=== PATIENT | male | born 1975 | race Two or more races ===

== ENCOUNTER 2017-12-30 10:46 | Inpatient (IN) | payer OTHER ==
[2017-12-30 11:40] VITALS: BMI 19.6
--- NOTE | 2017-12-30 12:14 | HP ---
COWS - Scale Resting Pulse: 0= [place] 80 or Below Sweatin= Chills/Flushing Restless Observation: 0= Sits Still Pupil Size: 0= Normal to Room Light Bone or Joint Aches: 1= Mild Discomfort Runny Nose/ Eye Tearin= Runny Nose/Eyes GI Upset > 30mins: 1= Stomach Cramp Tremor Observation: 1= Tremor [place], Not Seen Yawning Observation: 1= 1-2x During Session Anxiety or Irritability: 1=Feels Anxious/Irritable Goose Flesh Skin: 0=Smooth Skin COWS Score: 8 Admission ROS BHS - HPI Chief Complaint: I want to detox, I need help Allergies/Adverse Reactions: Allergies Allergy/AdvReac Type Severity Reaction Status Date / Time Penicillins Allergy Severe Rash Verified 12/30/17 12:06 pork derived (porcine) AdvReac Intermediate Rash Verified 12/30/17 12:06 seafood AdvReac Intermediate Rash Uncoded 12/30/17 12:06 History of Present Illness: 42 yo gentleman here for detox from heroin. FIrst time here but previous detox about six weeks ago at [facility]. History of trying methadone program a year ago but didn't like it. Denies overdose, denies seizures. Does have significant psychiatric history. Exam Limitations: Clinical Condition - Ebola screening Have you traveled outside of the country in the last 21 days: No (N) Have you had contact with anyone from an Ebola affected area: No Have you been sick,other than usual withdrawal symptoms: No Do you have a fever: No - Review of Systems Constitutional: Loss of Appetite, Malaise, Changes in sleep, Weakness EENT: reports: Tearing Respiratory: reports: No Symptoms reported Cardiac: reports: No Symptoms Reported Patient History - Patient Medical History Hx Asthma: No Hx Cancer: No Hx Cardiac Disorders: No Hx Congestive Heart Failure: No Hx Hypertension: No Hx Hypercholesterolemia: No Hx Pacemaker: No HX Cerebrovascular Accident: No Hx Seizures: No Hx Dementia: No Hx Diabetes: No Hx Gastrointestinal Disorders: No Hx Liver Disease: No Hx Genitourinary Disorders: No Hx Sexually Transmitted Disorders: No Hx Renal Disease (ESRD): No Hx Thyroid Disease: No Hx Human Immunodeficiency Virus (HIV): No Hx Hepatitis C: No Hx Depression: Yes (september [address] [facility] ) Hx Suicide Attempt: Yes (age 24 - hospitalized - slit wrists) Hx Bipolar Disorder: Yes Hx Schizophrenia: Yes (schizoaffective) - Patient Surgical History Past Surgical History: No - PPD History Previous Implant?: Yes Documented Results: Negative w/o proof PPD to be Administered?: Yes - Reproductive History Patient is a Female of Child Bearing Age (11 -55 yrs old): No (male) - Smoking Cessation Smoking history: Current every day smoker Have you smoked in the past 12 months: Yes Aproximately how many cigarettes per day: 4 Initiated information on smoking cessation: Yes 'Breaking Loose' booklet given: 12/30/17 (give on floor) - Substance & Tx. History Hx Alcohol Use: No Hx Substance Use: Yes Substance Use Type: Cocaine, Heroin, Marijuana Hx Substance Use Treatment: Yes (detox, hx methadone program 2017) - Substances Abused Heroin Route: Inhalation Frequency: Daily Amount used: 2-4 bags Age of first use: 37 Date of Last Use: 12/30/17 cocaine Route: Inhalation Frequency: Daily Amount used: $10 Age of first use: 23 Date of Last Use: 12/29/17 marijuana Route: Smoking Frequency: 1-2 times per week Amount used: 2 joints Age of first use: 17 Date of Last Use: 12/29/17 Family Disease History - Family Disease History Family Disease History: Diabetes: Mother (living, ), Other: Father (lviing, healthy), Mother, Brother (one - living) Admission Physical Exam S - Vital Signs Vital Signs: Vital Signs - 24 hr 12/30/17 11:38 Temperature 98.4 F Pulse Rate 61 Respiratory 16 Rate Blood Pressure 108/68 - Physical General Appearance: Yes: Nourished, Appropriately Dressed, Moderate Distress, Thin HEENTM: Yes: Hearing grossly Normal, Normocephalic, Normal Voice, Pharynx Normal Respiratory: Yes: Normal Breath Sounds, No Respiratory Distress Neck: Yes: No masses,lesions,Nodules, Supple Breast: Yes: Breast Exam Deferred Cardiology: Yes: Regular Rhythm, Regular Rate Abdominal: Yes: Flat, Soft Genitourinary: Yes: Hesitency Back: Yes: Normal Inspection Musculoskeletal: Yes: full range of Motion, Gait Steady Extremities: Yes: Normal Inspection, Non-Tender Neurological: Yes: Fully Oriented, Alert, Motor Strength 5/5, Normal Mood/Affect , Normal Response Integumentary: Yes: Normal Color, Warm Lymphatic: Yes: Within Normal Limits - Diagnostic (1) Opioid dependence with withdrawal Current Visit: Yes Status: Chronic (2) Cocaine dependence Current Visit: Yes Status: Acute Qualifiers: Substance use status: uncomplicated Qualified Code(s): F14.20 - Cocaine dependence, uncomplicated (3) Marijuana abuse Current Visit: Yes Status: Chronic (4) Nicotine dependence Current Visit: Yes Status: Chronic Qualifiers: Nicotine product type: cigarettes BHS Breath Alcohol Content Breath Alcohol Content: 0 Urine Drug Screen - Results Drug Screen Negative: No Urine Drug Screen Results: THC-Marijuana, AUGILA-Cocaine, OPI-Opiates
[2017-12-30] MEDS ORDERED: guaiFENesin/D-METHORPHAN HB 10 ML UNIT-DOSE CUPS PO PRN (12:27)
[2017-12-30] MEDS ORDERED: hydrOXYzine PAMOATE 25 MG CAPSULE (FP) PO PRN (12:27)
[2017-12-30] MEDS ORDERED: IBUPROFEN 400 MG TABLET (FP) PO PRN (12:27)
[2017-12-30] MEDS ORDERED: MENTHOL/PHENOL 1 EACH UD MM PRN (12:27)
[2017-12-30] MEDS ORDERED: MAGNESIUM CITRATE 300 ML BOTTLE PO PRN (12:27)
[2017-12-30] MEDS ORDERED: P-EPHED 60MG/TRIPROLIDI 2.5MG TABLET PO PRN (12:27)
[2017-12-30] MEDS ORDERED: LOPERAMIDE HCL 2 MG CAPSULE PO PRN (12:27)
[2017-12-30] MEDS ORDERED: MAG HYDROX/AL HYDROX/SIMETH 30 ML UNIT-DOSE CUP PO PRN (12:27)
[2017-12-30] MEDS ORDERED: ACETAMINOPHEN 325 MG TABLET (FP) PO PRN (12:27)
[2017-12-30] MEDS ORDERED: MAGNESIUM HYDROX 2400MG/30ML ORAL SUSPENSION 30 ML CUP PO PRN (12:27)
[2017-12-30] MEDS ORDERED: METHADONE HCL 10 MG TABLET (FOR DETOX USE ONLY) PO ONE ×2 (13:30→23:00)
--- NOTE | 2017-12-30 14:47 | EKG ---
Test Reason : Blood Pressure : / mmHG Vent. Rate : 056 BPM Atrial Rate : 056 BPM P-R Int : 146 ms QRS Dur : 092 ms QT Int : 412 ms P-R-T Axes : 047 046 047 degrees QTc Int : 397 ms SINUS BRADYCARDIA OTHERWISE NORMAL ECG NO PREVIOUS ECGS AVAILABLE Confirmed by MD Hess Daniel ([id number]) on 12/30/2017 2:47:15 PM Referred By: Confirmed By:Rl Hess MD
[2017-12-30 17:37] LABS: URINE APPEARANCE CLEAR; URINE BILIRUBIN NEGATIVE (<2.0 mg/dL); URINE BLOOD NEGATIVE (NEGATIVE); URINE COLOR YELLOW; URINE GLUCOSE (UA) NEGATIVE (NEGATIVE); URINE KETONE NEGATIVE (NEGATIVE); URINE LEUK ESTERASE NEGATIVE (NEGATIVE); URINE NITRITE NEGATIVE (NEGATIVE); URINE PROTEIN NEGATIVE (NEGATIVE); URINE UROBILINOGEN NEGATIVE mg/dL (0.2-1.0)
[2017-12-30] MEDS ORDERED: MELATONIN 5 MG TABLETS PO PRN (22:00)
[2017-12-30] MEDS: diazePAM 5 MG TABLET PO PRN (22:50)
[2017-12-30] MEDS: THIAMINE HCL 100 MG TABLET (FP) PO SCH (22:51)
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
--- NOTE | 2017-12-31 09:08 | CONSULT ---
Mental Status Exam - Mental Status Exam Alert and Oriented to: Time, Place, Person Cognitive Function: Good Patient Appearance: Well Groomed Mood: Apathetic, Depressed Affect: Appropriate Patient Behavior: Cooperative Speech Pattern: Clear Voice Loudness: Normal, Mildly Soft/Quiet Thought Process: Intact Thought Disorder: Not Present Hallucinations: None Suicidal Ideation: None Homicidal Ideation: None Insight/Judgement: Poor Sleep: Poorly Appetite: Good Muscle strength/Tone: Normal Gait/Station: Normal Psychiatric Findings - Problem List ([place] 1, 2,3) (1) Depressed bipolar I disorder in full remission with anxious distress Current Visit: Yes Status: Acute (2) Cocaine dependence Current Visit: Yes Status: Acute Qualifiers: Substance use status: uncomplicated Qualified Code(s): F14.20 - Cocaine dependence, uncomplicated (3) Marijuana abuse Current Visit: Yes Status: Acute (4) Nicotine dependence Current Visit: Yes Status: Acute Qualifiers: Nicotine product type: cigarettes (5) Opioid dependence with withdrawal Current Visit: Yes Status: Acute - Initial Treatment Plan Initial Treatment Plan: [facility]. Detox protocol. Trazodone 50 mg po q hs
[2017-12-31] MEDS: diazePAM 5 MG TABLET PO PRN ×2 (09:14→17:10)
[2017-12-31] MEDS: PRENATAL VITAMINS W/ FOLIC ACID TABLET (FP) PO SCH (09:14)
[2017-12-31] MEDS ORDERED: METHADONE HCL 10 MG TABLET (FOR DETOX USE ONLY) PO ONE (10:00)
[2017-12-31 10:06] LABS: MEAN CELL VOLUME 92.8 fl (80-96)
[2017-12-31 10:10] LABS: HEMATOCRIT 39.5 % (35.4-49); HEMOGLOBIN 13.2 GM/dL (11.7-16.9); MCHC 33.4 g/dl (32.0-35.9); MEAN PLT VOLUME 8.3 fl (7.5-11.1); PLATELET COUNT 189 K/MM3 (134-434); RBC 4.25 M/mm3 (4.00-5.60); RDW 12.9 % (11.9-15.9); WHITE BLOOD COUNT 3.3 K/mm3 (4.0-10.0)
[2017-12-31 10:19] LABS: CHLORIDE 105 mmol/L (98-107); POTASSIUM 4.2 mmol/L (3.5-5.1); SODIUM 140 mmol/L (136-145)
[2017-12-31 10:44] LABS: ALBUMIN 3.5 g/dl (3.4-5.0); ALK PHOS 63 U/L (45-117); ANION GAP 6 (8-16); BILIRUBIN,TOTAL 0.4 mg/dL (0.2-1.0); BLOOD UREA NITROGEN 12 mg/dL (7-18); CALCIUM 8.6 mg/dL (8.5-10.1); CO2 29 mmol/L (21-32); CREATININE 0.9 mg/dL (0.7-1.3); GLUCOSE,RANDOM 74 mg/dL (74-106); SGOT/AST 23 U/L (15-37); SGPT/ALT 32 U/L (12-78); TOT PROT 6.3 g/dl (6.4-8.2)
[2017-12-31] MEDS: NICOTINE POLACRILEX 4 MG GUM BUC PRN ×3 (11:15→22:28)
--- NOTE | 2017-12-31 14:24 | PN ---
S COWS - Scale Resting Pulse: 0= [place] 80 or Below Sweatin= Chills/Flushing Restless Observation: 3= Extraneous Movement Pupil Size: 0= Normal to Room Light Bone or Joint Aches: 4=Acute Joint/Muscle Pain Runny Nose/ Eye Tearin= Nasal Congestion GI Upset > 30mins: 0= None Tremor Observation of Outstretched Hands: 1= Tremor [place], Not Seen Yawning Observation: 0= None Anxiety or Irritability: 2=Irritable/Anxious Goose Flesh Skin: 0=Smooth Skin COWS Score: 12 S Progress Note (SOAP) Subjective: ANXIETY,SWEATS,BACK ACHE,INTERMITTENT SLEEP. Objective: 12/31/17 14:23 Vital Signs 12/31/17 12/31/17 09:59 13:41 Temperature 96.0 F L 97.6 F Pulse Rate 60 55 L Respiratory 18 18 Rate Blood Pressure 116/80 111/85 Laboratory Tests 12/30/17 12/31/17 12/31/17 Unknown 07:50 07:50 WBC 3.3 L RBC 4.25 Hgb 13.2 Hct 39.5 MCV 92.8 MCH 31.0 MCHC 33.4 RDW 12.9 Plt Count 189 MPV 8.3 Sodium 140 Potassium 4.2 Chloride 105 Carbon Dioxide 29 Anion Gap 6 L BUN 12 Creatinine 0.9 Creat Clearance w eGFR > 60 Random Glucose 74 Calcium 8.6 Total Bilirubin 0.4 AST 23 ALT 32 Alkaline Phosphatase 63 Total Protein 6.3 L Albumin 3.5 Urine Color Yellow Urine Appearance Clear Urine pH 7.0 Ur Specific [place] 1.025 Urine Protein Negative Urine Glucose (UA) Negative Urine Ketones Negative Urine Blood Negative Urine Nitrite Negative Urine Bilirubin Negative Urine Urobilinogen Negative Ur Leukocyte Esterase Negative RPR Titer HIV 1&2 Antibody Screen HIV P24 Antigen 12/31/17 12/31/17 07:50 07:50 WBC RBC Hgb Hct MCV MCH MCHC RDW Plt Count MPV Sodium Potassium Chloride Carbon Dioxide Anion Gap BUN Creatinine Creat Clearance w eGFR Random Glucose Calcium Total Bilirubin AST ALT Alkaline Phosphatase Total Protein Albumin Urine Color Urine Appearance Urine pH Ur Specific [place] Urine Protein Urine Glucose (UA) Urine Ketones Urine Blood Urine Nitrite Urine Bilirubin Urine Urobilinogen Ur Leukocyte Esterase RPR Titer Nonreactive HIV 1&2 Antibody Screen Negative HIV P24 Antigen Negative Assessment: 12/31/17 14:23 WITHDRAWAL SX Plan: CONTINUE DETOX
[2017-12-31] MEDS: CYCLOBENZAPRINE HCL 10 MG TABLET (FP) PO SCH (22:27)
[2017-12-31] MEDS: THIAMINE HCL 100 MG TABLET (FP) PO SCH (22:27)
[2018-01-01] MEDS: diazePAM 5 MG TABLET PO PRN ×3 (01:39→17:38)
[2018-01-01] MEDS: CYCLOBENZAPRINE HCL 10 MG TABLET (FP) PO SCH ×3 (06:45→22:23)
[2018-01-01] MEDS ORDERED: METHADONE HCL 5 MG TABLET (FOR DETOX USE ONLY) PO ONE (10:00)
[2018-01-01] MEDS: PRENATAL VITAMINS W/ FOLIC ACID TABLET (FP) PO SCH (10:23)
--- NOTE | 2018-01-01 11:36 | PN ---
BHS COWS - Scale Resting Pulse: 0= [place] 80 or Below Sweatin=Flushed/Facial Moisture Restless Observation: 3= Extraneous Movement Pupil Size: 0= Normal to Room Light Bone or Joint Aches: 1= Mild Discomfort Runny Nose/ Eye Tearin= Nasal Congestion GI Upset > 30mins: 1= Stomach Cramp Tremor Observation of Outstretched Hands: 2= Slight Tremor Visible Yawning Observation: 0= None Anxiety or Irritability: 2=Irritable/Anxious Goose Flesh Skin: 0=Smooth Skin COWS Score: 12 S Progress Note (SOAP) Subjective: Shakes sweats Back pain - chronic Objective: 01/01/18 11:34 A & O x 3 Ambulatory with a steady gait Anxious No acute distress Vital Signs Temperature 97.9 F 01/01/18 09:36 Pulse Rate 59 L 01/01/18 09:36 Respiratory Rate 18 01/01/18 09:36 Blood Pressure 102/65 01/01/18 09:36 O2 Sat by Pulse Oximetry (%) Laboratory Last Values WBC 3.3 K/mm3 (4.0-10.0) L 12/31/17 07:50 RBC 4.25 M/mm3 (4.00-5.60) 12/31/17 07:50 Hgb 13.2 GM/dL (11.7-16.9) 12/31/17 07:50 Hct 39.5 % (35.4-49) 12/31/17 07:50 MCV 92.8 fl (80-96) 12/31/17 07:50 MCH 31.0 pg (25.7-33.7) 12/31/17 07:50 MCHC 33.4 g/dl (32.0-35.9) 12/31/17 07:50 RDW 12.9 % (11.9-15.9) 12/31/17 07:50 Plt Count 189 K/MM3 (134-434) 12/31/17 07:50 MPV 8.3 fl (7.5-11.1) 12/31/17 07:50 Sodium 140 mmol/L (136-145) 12/31/17 07:50 Potassium 4.2 mmol/L (3.5-5.1) 12/31/17 07:50 Chloride 105 mmol/L (98-107) 12/31/17 07:50 Carbon Dioxide 29 mmol/L (21-32) 12/31/17 07:50 Anion Gap 6 (8-16) L 12/31/17 07:50 BUN 12 mg/dL (7-18) 12/31/17 07:50 Creatinine 0.9 mg/dL (0.7-1.3) 12/31/17 07:50 Creat Clearance w eGFR > 60 (>60) 12/31/17 07:50 Random Glucose 74 mg/dL (74-106) 12/31/17 07:50 Calcium 8.6 mg/dL (8.5-10.1) 12/31/17 07:50 Total Bilirubin 0.4 mg/dL (0.2-1.0) 12/31/17 07:50 AST 23 U/L (15-37) 12/31/17 07:50 ALT 32 U/L (12-78) 12/31/17 07:50 Alkaline Phosphatase 63 U/L (45-117) 12/31/17 07:50 Total Protein 6.3 g/dl (6.4-8.2) L 12/31/17 07:50 Albumin 3.5 g/dl (3.4-5.0) 12/31/17 07:50 Urine Color Yellow 12/30/17 Unknown Urine Appearance Clear 12/30/17 Unknown Urine pH 7.0 (5.0-8.0) 12/30/17 Unknown Ur Specific [place] 1.025 (1.001-1.035) 12/30/17 Unknown Urine Protein Negative (NEGATIVE) 12/30/17 Unknown Urine Glucose (UA) Negative (NEGATIVE) 12/30/17 Unknown Urine Ketones Negative (NEGATIVE) 12/30/17 Unknown Urine Blood Negative (NEGATIVE) 12/30/17 Unknown Urine Nitrite Negative (NEGATIVE) 12/30/17 Unknown Urine Bilirubin Negative (<2.0 mg/dL) 12/30/17 Unknown Urine Urobilinogen Negative mg/dL (0.2-1.0) 12/30/17 Unknown Ur Leukocyte Esterase Negative (NEGATIVE) 12/30/17 Unknown RPR Titer Nonreactive (NONREACTIVE) 12/31/17 07:50 HIV 1&2 Antibody Screen Negative 12/31/17 07:50 HIV P24 Antigen Negative 12/31/17 07:50 Labs noted Assessment: 01/01/18 11:36 Withdrawal sx Plan: Continue detox pain med for chronic back pain
[2018-01-01] MEDS: NICOTINE POLACRILEX 4 MG GUM BUC PRN (15:37)
[2018-01-01] MEDS: THIAMINE HCL 100 MG TABLET (FP) PO SCH (22:23)
[2018-01-02] MEDS: diazePAM 5 MG TABLET PO PRN (03:05)
[2018-01-02] MEDS: CYCLOBENZAPRINE HCL 10 MG TABLET (FP) PO SCH (07:13)
[2018-01-02 09:11] VITALS: BP 107/73; PULSE 77; TEMP 98
[2018-01-02] MEDS ORDERED: METHADONE HCL 5 MG TABLET (FOR DETOX USE ONLY) PO ONE (10:00)
[2018-01-02] MEDS: PRENATAL VITAMINS W/ FOLIC ACID TABLET (FP) PO SCH (10:40)
--- NOTE | 2018-01-02 13:17 | PN ---
BHS Progress Note (SOAP) Subjective: Sweating, Body Aches, Anxious. Objective: PATIENT A & O X 3, OBSERVED AMBULATING ON UNIT. NO ACUTE DISTRESS. 01/02/18 13:16 Vital Signs Temperature 98 F 01/02/18 09:10 Pulse Rate 77 01/02/18 09:10 Respiratory Rate 20 01/02/18 09:10 Blood Pressure 107/73 01/02/18 09:10 O2 Sat by Pulse Oximetry (%) Laboratory Tests 12/30/17 12/31/17 12/31/17 Unknown 07:50 07:50 WBC 3.3 L RBC 4.25 Hgb 13.2 Hct 39.5 MCV 92.8 MCH 31.0 MCHC 33.4 RDW 12.9 Plt Count 189 MPV 8.3 Sodium 140 Potassium 4.2 Chloride 105 Carbon Dioxide 29 Anion Gap 6 L BUN 12 Creatinine 0.9 Creat Clearance w eGFR > 60 Random Glucose 74 Calcium 8.6 Total Bilirubin 0.4 AST 23 ALT 32 Alkaline Phosphatase 63 Total Protein 6.3 L Albumin 3.5 Urine Color Yellow Urine Appearance Clear Urine pH 7.0 Ur Specific [place] 1.025 Urine Protein Negative Urine Glucose (UA) Negative Urine Ketones Negative Urine Blood Negative Urine Nitrite Negative Urine Bilirubin Negative Urine Urobilinogen Negative Ur Leukocyte Esterase Negative RPR Titer HIV 1&2 Antibody Screen HIV P24 Antigen 12/31/17 12/31/17 07:50 07:50 WBC RBC Hgb Hct MCV MCH MCHC RDW Plt Count MPV Sodium Potassium Chloride Carbon Dioxide Anion Gap BUN Creatinine Creat Clearance w eGFR Random Glucose Calcium Total Bilirubin AST ALT Alkaline Phosphatase Total Protein Albumin Urine Color Urine Appearance Urine pH Ur Specific [place] Urine Protein Urine Glucose (UA) Urine Ketones Urine Blood Urine Nitrite Urine Bilirubin Urine Urobilinogen Ur Leukocyte Esterase RPR Titer Nonreactive HIV 1&2 Antibody Screen Negative HIV P24 Antigen Negative LABS NOTED. Assessment: 01/02/18 13:17 WITHDRAWAL SYMPTOMS. Plan: CONTINUE DETOX.
--- NOTE | 2018-01-02 13:23 | DS ---
[facility] Detox Discharge Summary Admission Date: 12/30/17 Discharge Date: 01/02/18 - History Present History: Cannabis Dependence, Cocaine Dependence, Opioid Dependence Additional Comments: PATIENT DOES NOT WISH TO STAY TO COMPLETE DETOX REGIMEN. PATIENT DISPLAYING VERBALLY CONFRONTATIONAL AND AGGRESSIVE BEHAVIOR WITH BOTH MEDICAL STAFF AND WITH OTHER PATIENTS EARLIER ON IN MORNING PRIOR TO TIME IN WHICH PATIENT ELECTED TO LEAVE DETOX UNIT. RISKS OF LEAVING DETOX UNIT AGAINST MEDICAL ADVICE AND PRIOR TO COMPLETION OF DETOX REGIMEN EXPLAINED TO PATIENT. PATIENT ADVISED TO GO IMMEDIATELY TO NEAREST ER SHOULD ANY INTOLERABLE DETOX SYMPTOMS DEVELOP AT ANY TIME. PATIENT LEFT DETOX UNIT IN STABLE MEDICAL CONDITION. Pertinent Past History: Depression, Anxious, Bipolar Disorder, Schizoaffective Disorder, Nicotine Dependence. - Physical Exam Results Vital Signs: Vital Signs Temperature 98 F 01/02/18 09:10 Pulse Rate 77 01/02/18 09:10 Respiratory Rate 20 01/02/18 09:10 Blood Pressure 107/73 01/02/18 09:10 O2 Sat by Pulse Oximetry (%) Pertinent Admission Physical Exam Findings: WITHDRAWAL SYMPTOMS. Laboratory Tests 12/30/17 12/31/17 12/31/17 Unknown 07:50 07:50 WBC 3.3 L RBC 4.25 Hgb 13.2 Hct 39.5 MCV 92.8 MCH 31.0 MCHC 33.4 RDW 12.9 Plt Count 189 MPV 8.3 Sodium 140 Potassium 4.2 Chloride 105 Carbon Dioxide 29 Anion Gap 6 L BUN 12 Creatinine 0.9 Creat Clearance w eGFR > 60 Random Glucose 74 Calcium 8.6 Total Bilirubin 0.4 AST 23 ALT 32 Alkaline Phosphatase 63 Total Protein 6.3 L Albumin 3.5 Urine Color Yellow Urine Appearance Clear Urine pH 7.0 Ur Specific [place] 1.025 Urine Protein Negative Urine Glucose (UA) Negative Urine Ketones Negative Urine Blood Negative Urine Nitrite Negative Urine Bilirubin Negative Urine Urobilinogen Negative Ur Leukocyte Esterase Negative RPR Titer HIV 1&2 Antibody Screen HIV P24 Antigen 12/31/17 12/31/17 07:50 07:50 WBC RBC Hgb Hct MCV MCH MCHC RDW Plt Count MPV Sodium Potassium Chloride Carbon Dioxide Anion Gap BUN Creatinine Creat Clearance w eGFR Random Glucose Calcium Total Bilirubin AST ALT Alkaline Phosphatase Total Protein Albumin Urine Color Urine Appearance Urine pH Ur Specific [place] Urine Protein Urine Glucose (UA) Urine Ketones Urine Blood Urine Nitrite Urine Bilirubin Urine Urobilinogen Ur Leukocyte Esterase RPR Titer Nonreactive HIV 1&2 Antibody Screen Negative HIV P24 Antigen Negative LABS NOTED. - Treatment Hospital Course: Detoxed Safely - Medication Discharge Medications: Ambulatory Orders Gabapentin [Neurontin -] 300 mg PO DAILY PRN 12/30/17 Lamotrigine [Lamictal -] 25 mg PO DAILY 12/30/17 Trazodone HCl 50 mg PO HS 12/30/17 - AMA Did Patient Leave Against Medical Advice: Yes (PATIENT DID NOT WISH TO STAY TO COMPLETE DETOX REGIMEN.)
[2018-01-03] MEDS ORDERED: METHADONE HCL 10 MG TABLET (FOR DETOX USE ONLY) PO ONE (10:00)
[2018-01-04] MEDS ORDERED: METHADONE HCL 5 MG TABLET (FOR DETOX USE ONLY) PO ONE (06:00)
== END 2018-01-02 11:02 | disposition left against medical advice (07) | DRG 770 ==
LOC: YASAS 10:46 → Y3N 13:32
PROVIDERS: ADMIT Surgery; ATTEND Surgery
PROC: HZ2ZZZZ Detoxification Services for Substance Abuse Treatment (ICD-10-PCS; principal; 2017-12-30)
DX: F11.23 Opioid dependence with withdrawal (principal); F14.20 Cocaine dependence, uncomplicated; F12.20 Cannabis dependence, uncomplicated; F17.213 Nicotine dependence, cigarettes, with withdrawal; F31.76 Bipolar disorder, in full remission, most recent episode depressed; Z88.0 Allergy status to penicillin; Z91.013 Allergy to seafood; Z91.5 Personal history of self-harm
CPT/HCPCS: 36415; 80053; 81003; 85027; 86593; 87389; 93005; 93010

== ENCOUNTER 2018-04-12 12:55 | Inpatient (IN) | payer OTHER ==
[2018-04-12 13:23] VITALS: BMI 20.9
--- NOTE | 2018-04-12 15:00 | HP ---
COWS - Scale Resting Pulse: 0= OR 80 or Below Sweatin= Chills/Flushing Restless Observation: 3= Extraneous Movement Pupil Size: 0= Normal to Room Light Bone or Joint Aches: 4=Acute Joint/Muscle Pain Runny Nose/ Eye Tearin= Nasal Congestion GI Upset > 30mins: 1= Stomach Cramp Tremor Observation: 0= None Yawning Observation: 1= 1-2x During Session Anxiety or Irritability: 2=Irritable/Anxious Goose Flesh Skin: 0=Smooth Skin COWS Score: 13 CIWA Score - CIWA Score Nausea/Vomitin (N/V TODAY) Muscle Tremors: 3 Anxiety: 4-Mod. Anxious/Guarded Agitation: 3 Paroxysmal Sweats: No Perspiration Orientation: 0-Oriented Tacttile Disturbances: 0-None Auditory Disturbances: 0-None Visual Disturbances: 0-None Headache: 0-None Present CIWA-Ar Total Score: 13 Admission ROS BHS - HPI Chief Complaint: HEROIN WITHDRAWAL SX-NAUSEA AND VOMITING,BODY ACHES-"I NEED HELP WITH MY DRUG USE". Allergies/Adverse Reactions: Allergies Allergy/AdvReac Type Severity Reaction Status Date / Time Penicillins Allergy Severe Rash Verified 12/30/17 12:06 pork derived (porcine) AdvReac Intermediate Rash Verified 12/30/17 12:06 seafood AdvReac Intermediate Rash Uncoded 12/30/17 12:06 History of Present Illness: 42 Y/O H/ MALE WITH A HX OF HEROIN,ALCOHOL,COCAINE AND MARIJUANA DEPENDENCE SEEKING DETOX [place]. 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 COPY OF [facility] ER DISCHARGE PAPERS IN PATIENT'S CHART. REPORTS HE WAS DISCHARGED TODAY AND REFERRED HERE TO DETOX. PT DENIES ANY PMHx. PT REPORTS MULTIPLE PSYCH HOSPITALIZATIONS-OVER 10 TIMES, LAST WAS IN FEBRUARY 2018 AT [facility]. PT DENIES S/H/I AT THIS TIME. Exam Limitations: No Limitations - Ebola screening Have you traveled outside of the country in the last 21 days: No Have you had contact with anyone from an Ebola affected area: No Have you been sick,other than usual withdrawal symptoms: No Do you have a fever: No - Review of Systems Constitutional: Chills, Loss of Appetite, Night Sweats, Changes in sleep, Unexplained wgt Loss EENT: reports: Blurred Vision (WEARS GLASSES), Tearing, Nose Congestion, Other ( SORE THROAT) Respiratory: reports: Cough, Productive cough (YELLOWISH BROWN SPUTUM) Cardiac: reports: Lightheadedness GI: reports: Constipated, Diarrhea, Nausea, Poor Appetite, Poor Fluid Intake, Vomiting : reports: Dysuria Musculoskeletal: reports: Back Pain, Joint Pain Integumentary: reports: No Symptoms Reported Neuro: reports: Headache, Numbness, Tingling Endocrine: reports: No Symptoms Reported Hematology: reports: Anemia Psychiatric: reports: Orientated x3, Anxious, Depressed Other Systems: Reviewed and Negative Patient History - Patient Medical History Hx Anemia: Yes (NO CURRENT TX) Hx Asthma: No Hx Chronic Obstructive Pulmonary Disease (COPD): No Hx Cancer: No Hx Cardiac Disorders: No Hx Congestive Heart Failure: No Hx Hypertension: No Hx Hypercholesterolemia: No Hx Pacemaker: No HX Cerebrovascular Accident: No Hx Seizures: No Hx Dementia: No Hx Diabetes: No Hx Gastrointestinal Disorders: No Hx Liver Disease: No Hx Genitourinary Disorders: No Hx Sexually Transmitted Disorders: No Hx Renal Disease (ESRD): No Hx Thyroid Disease: No Hx Human Immunodeficiency Virus (HIV): No (NEGATIVE HX) Hx Hepatitis C: No Hx Depression: Yes (FEBRUARY 2018 HOSPITALIZED AT [facility]) Hx Suicide Attempt: Yes (age 24 - hospitalized - slit wrists;DENIES CURRENT S/I/ H TODAY) Hx Bipolar Disorder: Yes Hx Schizophrenia: Yes (schizoaffective) - Patient Surgical History Past Surgical History: No Hx Neurologic Surgery: No Hx Cataract Extraction: No Hx Cardiac Surgery: No Hx Lung Surgery: No Hx Breast Surgery: No Hx Breast Biopsy: No Hx Abdominal Surgery: No Hx Appendectomy: No Hx Cholecystectomy: No Hx Genitourinary Surgery: No Hx Section: No Hx Orthopedic Surgery: No Anesthesia Reaction: No - PPD History Previous Implant?: Yes Documented Results: Negative w/proof Date: 01/01/18 PPD to be Administered?: No - Reproductive History Patient is a Female of Child Bearing Age (11 -55 yrs old): No (MALE) - Smoking Cessation Smoking history: Current every day smoker Have you smoked in the past 12 months: Yes Aproximately how many cigarettes per day: 4 Hx Chewing Tobacco Use: No Initiated information on smoking cessation: Yes 'Breaking Loose' booklet given: 04/12/18 - Substance & Tx. History Hx Alcohol Use: Yes (OCASSIONALLY) Hx Substance Use: Yes (HEROIN/COCAINE/MARIJUANA) Substance Use Type: Alcohol, Cocaine, Heroin, Marijuana Hx Substance Use Treatment: Yes ([facility] AT [facility]) - Substances Abused Alcohol Route: Oral Frequency: 1-2 times per week (PT REPORTS ALCOHOL INTAKE FREQUENCY VARIES BUT CAN DRINK ABOVE QUANTITIES AT ONCE EPISODE.) Amount used: 1/2 PT VODAK & 6PK BEER Age of first use: 22 Date of Last Use: 03/25/18 Heroin Route: Inhalation Frequency: Daily Amount used: 2-4 BAGS Age of first use: 36 Date of Last Use: 04/11/18 Cocaine Route: Inhalation Frequency: 1-2 times per week Amount used: 1 DIME Age of first use: 23 Date of Last Use: 04/11/18 Marijuana/Hashish Route: Smoking Frequency: 1-3 times last 30 days Amount used: $5 BAG Age of first use: 18 Date of Last Use: 04/08/18 Family Disease History - Family Disease History Family Disease History: Diabetes: Mother (living, ), Other: Father (lviing, healthy), Mother, Brother (one - living) Admission Physical Exam S - Vital Signs Vital Signs: Vital Signs - 24 hr 04/12/18 13:17 Temperature 97.8 F Pulse Rate 68 Respiratory 18 Rate Blood Pressure 119/73 - Physical General Appearance: Yes: Moderate Distress, Irritable, Anxious HEENTM: Yes: EOMI, Normocephalic, DWAYNE, Pharynx Normal Respiratory: Yes: Chest Non-Tender, Lungs Clear, Normal Breath Sounds Neck: Yes: No masses,lesions,Nodules, Supple, Trachea in good position Breast: Yes: Breast Exam Deferred Cardiology: Yes: Regular Rhythm, Regular Rate, S1, S2 Abdominal: Yes: Normal Bowel Sounds, Non Tender, Flat, Soft Genitourinary: Yes: Other (N/C) Back: Yes: Within Normal Limits Musculoskeletal: Yes: full range of Motion, Gait Steady Extremities: Yes: Normal Range of Motion, Non-Tender Neurological: Yes: handbook writer II-XII NML intact, Fully Oriented, Alert, Motor Strength 5/5 Integumentary: Yes: Dry, Warm Lymphatic: Yes: Within Normal Limits - Diagnostic (1) Cannabis dependence, uncomplicated Current Visit: Yes Status: Acute (2) Cocaine dependence Current Visit: Yes Status: Acute Qualifiers: Substance use status: uncomplicated Qualified Code(s): F14.20 - Cocaine dependence, uncomplicated (3) Nicotine dependence Current Visit: Yes Status: Acute Qualifiers: Nicotine product type: cigarettes Substance use status: in withdrawal Qualified Code(s): F17.213 - Nicotine dependence, cigarettes, with withdrawal (4) Opioid dependence with withdrawal Current Visit: Yes Status: Acute Cleared for Admission S - Detox or Rehab [facility] Level of Care: Medically Managed (PT REQUEST VALIUM INSTEAD OF LIBRIUM) Detox Regimen/Protocol: Methadone/Valium S Breath Alcohol Content Breath Alcohol Content: 0 Urine Drug Screen - Results Drug Screen Negative: No Urine Drug Screen Results: THC-Marijuana, AGUILA-Cocaine, OPI-Opiates, MTD- Methadone
[2018-04-12] MEDS ORDERED: LOPERAMIDE HCL 2 MG CAPSULE PO PRN (15:51)
[2018-04-12] MEDS ORDERED: MAGNESIUM HYDROX 2400MG/30ML ORAL SUSPENSION 30 ML CUP PO PRN (15:51)
[2018-04-12] MEDS ORDERED: MAGNESIUM CITRATE 300 ML BOTTLE PO PRN (15:51)
[2018-04-12] MEDS ORDERED: ACETAMINOPHEN 325 MG TABLET (FP) PO PRN (15:51)
[2018-04-12] MEDS ORDERED: MAG HYDROX/AL HYDROX/SIMETH 30 ML UNIT-DOSE CUP PO PRN (15:51)
[2018-04-12] MEDS ORDERED: P-EPHED 60MG/TRIPROLIDI 2.5MG TABLET PO PRN (15:51)
[2018-04-12] MEDS ORDERED: MENTHOL/PHENOL 1 EACH UD MM PRN (15:51)
[2018-04-12] MEDS ORDERED: guaiFENesin/D-METHORPHAN HB 10 ML UNIT-DOSE CUPS PO PRN (15:51)
[2018-04-12] MEDS ORDERED: diazePAM 5 MG TABLET PO ONE (18:00)
[2018-04-12] MEDS ORDERED: METHADONE HCL 10 MG TABLET (FOR DETOX USE ONLY) PO ONE ×2 (18:00→23:00)
[2018-04-12] MEDS: NICOTINE 14 MG/24 HOURS TOPICAL PATCH TD SCH (18:24)
[2018-04-12] MEDS ORDERED: MELATONIN 5 MG TABLETS PO PRN (22:00)
[2018-04-12] MEDS: THIAMINE HCL 100 MG TABLET (FP) PO SCH (22:22)
[2018-04-12] MEDS: diazePAM 5 MG TABLET PO SCH (22:22)
[2018-04-13] MEDS: diazePAM 5 MG TABLET PO PRN ×3 (00:44→20:34)
[2018-04-13 03:32] LABS: URINE APPEARANCE CLEAR; URINE BILIRUBIN NEGATIVE (<2.0 mg/dL); URINE COLOR LTYELLOW; URINE GLUCOSE (UA) NEGATIVE (NEGATIVE); URINE KETONE NEGATIVE (NEGATIVE); URINE LEUK ESTERASE NEGATIVE (NEGATIVE); URINE NITRITE NEGATIVE (NEGATIVE); URINE PROTEIN NEGATIVE (NEGATIVE)
[2018-04-13] MEDS: diazePAM 5 MG TABLET PO SCH ×3 (05:41→22:37)
[2018-04-13] MEDS: NICOTINE POLACRILEX 2 MG GUM BC PRN ×4 (07:19→17:18)
--- NOTE | 2018-04-13 08:01 | EKG ---
Test Reason : Blood Pressure : / mmHG Vent. Rate : 052 BPM Atrial Rate : 052 BPM P-R Int : 124 ms QRS Dur : 088 ms QT Int : 414 ms P-R-T Axes : 015 041 040 degrees QTc Int : 385 ms SINUS BRADYCARDIA OTHERWISE NORMAL ECG WHEN COMPARED WITH ECG OF 30-DEC-2017 14:25, NO SIGNIFICANT CHANGE WAS FOUND Confirmed by XOCHITL FONG MD ([id number]) on 04/13/2018 8:01:29 AM Referred By: Confirmed By:XOCHITL FONG MD
[2018-04-13] MEDS ORDERED: METHADONE HCL 10 MG TABLET (FOR DETOX USE ONLY) PO SCH (10:00)
[2018-04-13 10:25] LABS: HEMATOCRIT 38.1 % (35.4-49); HEMOGLOBIN 12.5 GM/dL (11.7-16.9); MCHC 32.7 g/dl (32.0-35.9); MEAN CELL VOLUME 91.5 fl (80-96); MEAN PLT VOLUME 8.3 fl (7.5-11.1); PLATELET COUNT 259 K/MM3 (134-434); RBC 4.16 M/mm3 (4.00-5.60); RDW 13.2 % (11.9-15.9); WHITE BLOOD COUNT 3.6 K/mm3 (4.0-10.0)
[2018-04-13 10:37] LABS: ALBUMIN 3.5 g/dl (3.4-5.0); ALK PHOS 76 U/L (45-117); ANION GAP 8 MMOL/L (8-16); BILIRUBIN,TOTAL 0.4 mg/dL (0.2-1); BLOOD UREA NITROGEN 9 mg/dL (7-18); CALCIUM 9.1 mg/dL (8.5-10.1); CHLORIDE 105 mmol/L (98-107); CO2 29 mmol/L (21-32); CREATININE 0.9 mg/dL (0.55-1.3); GLUCOSE,RANDOM 62 mg/dL (74-106); POTASSIUM 3.9 mmol/L (3.5-5.1); SGOT/AST 22 U/L (15-37); SGPT/ALT 30 U/L (13-61); SODIUM 141 mmol/L (136-145); TOT PROT 6.4 g/dl (6.4-8.2)
[2018-04-13] MEDS: PRENATAL VITAMINS W/ FOLIC ACID TABLET (FP) PO SCH (10:48)
[2018-04-13] MEDS: NICOTINE 14 MG/24 HOURS TOPICAL PATCH TD SCH (10:49)
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
[2018-04-13] MEDS: lamoTRIgine 25 MG TABLET PO SCH (14:47)
--- NOTE | 2018-04-13 14:48 | PN ---
[facility] CIWA - CIWA Score Nausea/Vomitin-No Nausea/No Vomiting Muscle Tremors: None Anxiety: 0-No Anxiety, at Ease Agitation: 1-Slight > Activity Paroxysmal Sweats: No Perspiration Orientation: 0-Oriented Tacttile Disturbances: 0-None Auditory Disturbances: 0-None Visual Disturbances: 0-None Headache: 0-None Present CIWA-Ar Total Score: 1 S COWS - Scale Resting Pulse: 0= HI 80 or Below Sweatin= No chills or Flushing Restless Observation: 1= Difficult to Sit Still Pupil Size: 0= Normal to Room Light Bone or Joint Aches: 0= None Runny Nose/ Eye Tearin= None GI Upset > 30mins: 0= None Tremor Observation of Outstretched Hands: 0= None Yawning Observation: 0= None Anxiety or Irritability: 0= None Goose Flesh Skin: 0=Smooth Skin COWS Score: 1 [facility] Progress Note (SOAP) Subjective: patient with mild irritability Objective: 04/13/18 14:47 Vital Signs Temperature 97.9 F 04/13/18 12:56 Pulse Rate 65 04/13/18 12:56 Respiratory Rate 18 04/13/18 12:56 Blood Pressure 124/67 04/13/18 12:56 O2 Sat by Pulse Oximetry (%) Laboratory Tests 04/12/18 04/13/18 04/13/18 23:31 07:00 07:00 WBC 3.6 L RBC 4.16 Hgb 12.5 Hct 38.1 MCV 91.5 MCH 30.0 MCHC 32.7 RDW 13.2 Plt Count 259 D MPV 8.3 Sodium 141 Potassium 3.9 Chloride 105 Carbon Dioxide 29 Anion Gap 8 BUN 9 Creatinine 0.9 Creat Clearance w eGFR > 60 Random Glucose 62 L Calcium 9.1 Total Bilirubin 0.4 AST 22 ALT 30 Alkaline Phosphatase 76 Total Protein 6.4 Albumin 3.5 Urine Color Ltyellow Urine Appearance Clear Urine pH 8.0 Ur Specific [place] 1.012 Urine Protein Negative Urine Glucose (UA) Negative Urine Ketones Negative Urine Blood Negative Urine Nitrite Negative Urine Bilirubin Negative Urine Urobilinogen 2.0 Ur Leukocyte Esterase Negative RPR Titer 04/13/18 07:00 WBC RBC Hgb Hct MCV MCH MCHC RDW Plt Count MPV Sodium Potassium Chloride Carbon Dioxide Anion Gap BUN Creatinine Creat Clearance w eGFR Random Glucose Calcium Total Bilirubin AST ALT Alkaline Phosphatase Total Protein Albumin Urine Color Urine Appearance Urine pH Ur Specific [place] Urine Protein Urine Glucose (UA) Urine Ketones Urine Blood Urine Nitrite Urine Bilirubin Urine Urobilinogen Ur Leukocyte Esterase RPR Titer Nonreactive pe: alert and oriented x 3 in nad pacing in unit ext no edema neuro +perrla, cn x1-12 grossly intact Assessment: 04/13/18 14:48 withdrawal syndrome Plan: continue detox as per protocol
[2018-04-13] MEDS ORDERED: TRIMETHOBENZAMIDE HCL 300 MG CAPSULE PO PRN (21:06)
[2018-04-13] MEDS: TRIMETHOBENZAMIDE HCL 200MG/2ML INJ IM PRN (22:10)
[2018-04-13] MEDS: THIAMINE HCL 100 MG TABLET (FP) PO SCH (22:37)
[2018-04-13] MEDS: ZOLPIDEM TARTRATE 10 MG TABLET (PARK CARE ONLY) PO PRN (22:40)
[2018-04-14] MEDS: diazePAM 5 MG TABLET PO PRN ×2 (02:16→23:26)
[2018-04-14] MEDS: IBUPROFEN 400 MG TABLET (FP) PO PRN (02:17)
[2018-04-14] MEDS: diazePAM 5 MG TABLET PO SCH ×2 (10:31→22:34)
[2018-04-14] MEDS: GABAPENTIN 300 MG CAPSULE (FP) PO SCH (10:31)
[2018-04-14] MEDS: METHADONE HCL 5 MG TABLET (FOR DETOX USE ONLY) PO SCH (10:31)
[2018-04-14] MEDS: lamoTRIgine 25 MG TABLET PO SCH (10:31)
[2018-04-14] MEDS: PRENATAL VITAMINS W/ FOLIC ACID TABLET (FP) PO SCH (10:31)
[2018-04-14] MEDS: NICOTINE 14 MG/24 HOURS TOPICAL PATCH TD SCH (10:32)
--- NOTE | 2018-04-14 11:00 | PN ---
S CIWA - CIWA Score Nausea/Vomitin Muscle Tremors: 2 Anxiety: 3 Agitation: 3 Paroxysmal Sweats: 2 Orientation: 0-Oriented Tacttile Disturbances: 2-Mild Itch/Numbness/Burn Auditory Disturbances: 1-Very Mild Visual Disturbances: 1-Very Mild Sensitivity Headache: 2-Mild CIWA-Ar Total Score: 19 BHS COWS - Scale Resting Pulse: 0= NE 80 or Below Sweatin= Chills/Flushing Restless Observation: 1= Difficult to Sit Still Pupil Size: 0= Normal to Room Light Bone or Joint Aches: 2= Severe Diffuse Aches Runny Nose/ Eye Tearin= Nasal Congestion GI Upset > 30mins: 3= Vomiting/Diarrhea Tremor Observation of Outstretched Hands: 2= Slight Tremor Visible Yawning Observation: 1= 1-2x During Session Anxiety or Irritability: 2=Irritable/Anxious Goose Flesh Skin: 3=Piloerection COWS Score: 16 B[facility] Progress Note (SOAP) Subjective: Irritability, interrupted sleep, nausea and vomiting Objective: 04/14/18 10:59 Vital Signs - 8 hr 04/14/18 04/14/18 03:30 10:00 Temperature 97.7 F Pulse Rate 61 Respiratory 18 18 Rate Blood Pressure 116/59 L Laboratory Last Values WBC 3.6 K/mm3 (4.0-10.0) L 04/13/18 07:00 RBC 4.16 M/mm3 (4.00-5.60) 04/13/18 07:00 Hgb 12.5 GM/dL (11.7-16.9) 04/13/18 07:00 Hct 38.1 % (35.4-49) 04/13/18 07:00 MCV 91.5 fl (80-96) 04/13/18 07:00 MCH 30.0 pg (25.7-33.7) 04/13/18 07:00 MCHC 32.7 g/dl (32.0-35.9) 04/13/18 07:00 RDW 13.2 % (11.9-15.9) 04/13/18 07:00 Plt Count 259 K/MM3 (134-434) D 04/13/18 07:00 MPV 8.3 fl (7.5-11.1) 04/13/18 07:00 Sodium 141 mmol/L (136-145) 04/13/18 07:00 Potassium 3.9 mmol/L (3.5-5.1) 04/13/18 07:00 Chloride 105 mmol/L (98-107) 04/13/18 07:00 Carbon Dioxide 29 mmol/L (21-32) 04/13/18 07:00 Anion Gap 8 MMOL/L (8-16) 04/13/18 07:00 BUN 9 mg/dL (7-18) 04/13/18 07:00 Creatinine 0.9 mg/dL (0.55-1.3) 04/13/18 07:00 Creat Clearance w eGFR > 60 (>60) 04/13/18 07:00 Random Glucose 62 mg/dL (74-106) L 04/13/18 07:00 Calcium 9.1 mg/dL (8.5-10.1) 04/13/18 07:00 Total Bilirubin 0.4 mg/dL (0.2-1) 04/13/18 07:00 AST 22 U/L (15-37) 04/13/18 07:00 ALT 30 U/L (13-61) 04/13/18 07:00 Alkaline Phosphatase 76 U/L (45-117) 04/13/18 07:00 Total Protein 6.4 g/dl (6.4-8.2) 04/13/18 07:00 Albumin 3.5 g/dl (3.4-5.0) 04/13/18 07:00 Urine Color Ltyellow 04/12/18 23:31 Urine Appearance Clear 04/12/18 23:31 Urine pH 8.0 (5.0-8.0) 04/12/18 23:31 Ur Specific [place] 1.012 (1.001-1.035) 04/12/18 23:31 Urine Protein Negative (NEGATIVE) 04/12/18 23:31 Urine Glucose (UA) Negative (NEGATIVE) 04/12/18 23: Urine Ketones Negative (NEGATIVE) 04/12/18 23:31 Urine Blood Negative (NEGATIVE) 04/12/18 23:31 Urine Nitrite Negative (NEGATIVE) 04/12/18 23: Urine Bilirubin Negative (<2.0 mg/dL) 04/12/18 23: Urine Urobilinogen 2.0 mg/dL (0.2-1.0) 04/12/18 23:31 Ur Leukocyte Esterase Negative (NEGATIVE) 04/12/18 23:31 RPR Titer Nonreactive (NONREACTIVE) 04/13/18 07:00 HIV 1&2 Antibody Screen Negative 04/13/18 07:00 HIV P24 Antigen Negative 04/13/18 07:00 Labs noted Assessment: 04/14/18 10:59 Withdrawal sx Plan: Continue detox
[2018-04-14] MEDS ORDERED: ONDANSETRON 8 MG TABLET (FP) PO PRN (11:17)
[2018-04-14] MEDS: NICOTINE POLACRILEX 2 MG GUM BC PRN (13:13)
[2018-04-14] MEDS: TRIMETHOBENZAMIDE HCL 200MG/2ML INJ IM PRN (17:10)
[2018-04-14] MEDS ORDERED: cloNIDine HCL 0.1 MG TABLET PO ONE (19:38)
[2018-04-14] MEDS: THIAMINE HCL 100 MG TABLET (FP) PO SCH (22:34)
[2018-04-14] MEDS: ZOLPIDEM TARTRATE 10 MG TABLET (PARK CARE ONLY) PO PRN (22:34)
[2018-04-15] MEDS: TRIMETHOBENZAMIDE HCL 200MG/2ML INJ IM PRN (10:41)
[2018-04-15] MEDS: GABAPENTIN 300 MG CAPSULE (FP) PO SCH (11:34)
[2018-04-15] MEDS: METHADONE HCL 5 MG TABLET (FOR DETOX USE ONLY) PO SCH (11:35)
[2018-04-15] MEDS: PRENATAL VITAMINS W/ FOLIC ACID TABLET (FP) PO SCH (11:36)
[2018-04-15] MEDS: lamoTRIgine 25 MG TABLET PO SCH (11:36)
[2018-04-15] MEDS: NICOTINE 14 MG/24 HOURS TOPICAL PATCH TD SCH (11:36)
[2018-04-15] MEDS: diazePAM 5 MG TABLET PO SCH ×2 (11:36→22:24)
[2018-04-15] MEDS: NICOTINE POLACRILEX 2 MG GUM BC PRN (11:37)
[2018-04-15] MEDS: IBUPROFEN 400 MG TABLET (FP) PO PRN (11:39)
[2018-04-15] MEDS ORDERED: ONDANSETRON *ODT* 4 MG TABLET SL PRN (12:38)
--- NOTE | 2018-04-15 14:13 | PN ---
[facility] Progress Note (SOAP) Subjective: Cramps in legs, vomiting, stomach cramps, interrupted sleep Objective: 04/15/18 14:12 Last Vital Signs Temp Pulse Resp BP Pulse Ox 97.4 F L 62 18 135/91 04/15/18 13:34 04/15/18 13:34 04/15/18 13:34 04/15/18 13:34 Laboratory Tests 04/12/18 04/13/18 04/13/18 23:31 07:00 07:00 WBC 3.6 L RBC 4.16 Hgb 12.5 Hct 38.1 MCV 91.5 MCH 30.0 MCHC 32.7 RDW 13.2 Plt Count 259 D MPV 8.3 Sodium 141 Potassium 3.9 Chloride 105 Carbon Dioxide 29 Anion Gap 8 BUN 9 Creatinine 0.9 Creat Clearance w eGFR > 60 Random Glucose 62 L Calcium 9.1 Total Bilirubin 0.4 AST 22 ALT 30 Alkaline Phosphatase 76 Total Protein 6.4 Albumin 3.5 Urine Color Ltyellow Urine Appearance Clear Urine pH 8.0 Ur Specific [place] 1.012 Urine Protein Negative Urine Glucose (UA) Negative Urine Ketones Negative Urine Blood Negative Urine Nitrite Negative Urine Bilirubin Negative Urine Urobilinogen 2.0 Ur Leukocyte Esterase Negative RPR Titer HIV 1&2 Antibody Screen HIV P24 Antigen 04/13/18 04/13/18 07:00 07:00 WBC RBC Hgb Hct MCV MCH MCHC RDW Plt Count MPV Sodium Potassium Chloride Carbon Dioxide Anion Gap BUN Creatinine Creat Clearance w eGFR Random Glucose Calcium Total Bilirubin AST ALT Alkaline Phosphatase Total Protein Albumin Urine Color Urine Appearance Urine pH Ur Specific [place] Urine Protein Urine Glucose (UA) Urine Ketones Urine Blood Urine Nitrite Urine Bilirubin Urine Urobilinogen Ur Leukocyte Esterase RPR Titer Nonreactive HIV 1&2 Antibody Screen Negative HIV P24 Antigen Negative Labs reviewed Assessment: 04/15/18 14:13 Withdrawal symptoms Plan: Continue detox
[2018-04-15] MEDS: THIAMINE HCL 100 MG TABLET (FP) PO SCH (22:24)
[2018-04-15] MEDS: ZOLPIDEM TARTRATE 10 MG TABLET (PARK CARE ONLY) PO PRN (22:25)
[2018-04-16] MEDS ORDERED: hydrOXYzine PAMOATE 50 MG CAPSULE (FP) PO PRN (03:10)
[2018-04-16] MEDS ORDERED: METHADONE HCL 10 MG TABLET (FOR DETOX USE ONLY) PO SCH (10:00)
[2018-04-16] MEDS ORDERED: diazePAM 5 MG TABLET PO SCH (10:00)
[2018-04-16] MEDS: PRENATAL VITAMINS W/ FOLIC ACID TABLET (FP) PO SCH (10:40)
[2018-04-16] MEDS: NICOTINE 14 MG/24 HOURS TOPICAL PATCH TD SCH (10:41)
[2018-04-16] MEDS: GABAPENTIN 300 MG CAPSULE (FP) PO SCH (10:41)
[2018-04-16] MEDS: lamoTRIgine 25 MG TABLET PO SCH (10:41)
[2018-04-16] MEDS: NICOTINE POLACRILEX 2 MG GUM BC PRN (10:41)
--- NOTE | 2018-04-16 15:34 | PN ---
[facility] Progress Note (SOAP) Subjective: Sleep disturbance Shakes Objective: 04/16/18 15:31 A & O x 3 Vital Signs Temperature 98.4 F 04/16/18 14:10 Pulse Rate 59 L 04/16/18 14:10 Respiratory Rate 20 04/16/18 14:10 Blood Pressure 119/79 04/16/18 14:10 O2 Sat by Pulse Oximetry (%) Assessment: 04/16/18 15:33 withdrawal sx Plan: continue detox
[2018-04-16] MEDS: ZOLPIDEM TARTRATE 10 MG TABLET (PARK CARE ONLY) PO PRN (21:49)
[2018-04-16] MEDS: THIAMINE HCL 100 MG TABLET (FP) PO SCH (23:09)
[2018-04-17] MEDS ORDERED: METHADONE HCL 5 MG TABLET (FOR DETOX USE ONLY) PO SCH (06:00)
[2018-04-17 09:47] VITALS: BP 107/67; PULSE 64; TEMP 97.1
[2018-04-17] MEDS: PRENATAL VITAMINS W/ FOLIC ACID TABLET (FP) PO SCH (10:00)
[2018-04-17] MEDS: GABAPENTIN 300 MG CAPSULE (FP) PO SCH (10:00)
[2018-04-17] MEDS: NICOTINE 14 MG/24 HOURS TOPICAL PATCH TD SCH (10:00)
[2018-04-17] MEDS: lamoTRIgine 25 MG TABLET PO SCH (10:00)
[2018-04-17] MEDS: IBUPROFEN 400 MG TABLET (FP) PO PRN (10:01)
--- NOTE | 2018-04-17 10:44 | DS ---
[facility] Detox Discharge Summary Admission Date: 04/12/18 Discharge Date: 04/17/18 - History Present History: Alcohol Dependence, Opioid Dependence - Physical Exam Results Vital Signs: Vital Signs Temperature 97.1 F L 04/17/18 09:46 Pulse Rate 64 04/17/18 09:46 Respiratory Rate 20 04/17/18 09:46 Blood Pressure 107/67 04/17/18 09:46 O2 Sat by Pulse Oximetry (%) Pertinent Admission Physical Exam Findings: Patient is medically stable. In NAD. Denies SI/HI. Patient is alert and oriented x 3. Ambulatory ad brendan. - Treatment Hospital Course: Detox Protocol Followed, Detoxed Safely, Responded well, Discharged Condition Good, Rehab Referral Accepted Patient has Accepted a Rehab Referral to: patient d/c to 28 day rehab at [facility] - Medication Discharge Medications: Ambulatory Orders Gabapentin [Neurontin -] 300 mg PO DAILY PRN 12/30/17 Lamotrigine [Lamictal -] 25 mg PO DAILY 12/30/17 Zolpidem Tartrate [Ambien] 10 mg PO 04/12/18 Gabapentin [Neurontin] 300 mg PO HS #30 capsule 04/16/18 Lamotrigine [Lamictal] 25 mg PO DAILY #30 tab.disper 04/16/18 - Diagnosis (1) Withdrawal syndrome Current Visit: Yes Status: Resolved - AMA Did Patient Leave Against Medical Advice: No
== END 2018-04-17 10:28 | disposition home or self-care (01) | DRG 773 ==
LOC: YASAS 12:55 → Y6N 17:12 → Y3N 04-14 23:05
PROC: HZ2ZZZZ Detoxification Services for Substance Abuse Treatment (ICD-10-PCS; principal; 2018-04-12)
DX: F11.23 Opioid dependence with withdrawal (principal); F10.230 Alcohol dependence with withdrawal, uncomplicated; F14.20 Cocaine dependence, uncomplicated; F12.20 Cannabis dependence, uncomplicated; F17.213 Nicotine dependence, cigarettes, with withdrawal; F31.9 Bipolar disorder, unspecified; F32.9 Major depressive disorder, single episode, unspecified; F25.0 Schizoaffective disorder, bipolar type; Z91.5 Personal history of self-harm; Z88.0 Allergy status to penicillin; Z86.2 Personal history of diseases of the blood and blood-forming organs and certain disorders involving the immune mechanism
CPT/HCPCS: 36415; 80053; 81003; 85027; 86593; 87389; 93005; 93010; J0735; Q0162

== ENCOUNTER 2019-01-21 10:06 | Inpatient (IN) | payer OTHER ==
[2019-01-21 11:23] VITALS: BMI 19.1
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
[2019-01-21] MEDS ORDERED: cloNIDine HCL 0.1 MG TABLET PO PRN (13:55)
[2019-01-21] MEDS ORDERED: chlordiazePOXIDE HCL 25 MG CAPSULE PO PRN (13:56)
[2019-01-21] MEDS ORDERED: ACETAMINOPHEN 325 MG TABLET (FP) PO PRN ×2 (13:58)
[2019-01-21] MEDS ORDERED: METHOCARBAMOL 500 MG TABLET PO PRN (13:58)
[2019-01-21] MEDS ORDERED: hydrOXYzine PAMOATE 25 MG CAPSULE (FP) PO PRN (13:58)
[2019-01-21] MEDS ORDERED: MAGNESIUM HYDROX 2400MG/30ML ORAL SUSPENSION 30 ML CUP PO PRN (13:58)
[2019-01-21] MEDS ORDERED: MENTHOL/PHENOL 1 EACH UD MM PRN (13:58)
[2019-01-21] MEDS ORDERED: NICOTINE POLACRILEX 2 MG GUM BUC PRN (13:58)
[2019-01-21] MEDS ORDERED: IBUPROFEN 400 MG TABLET (FP) PO PRN (13:58)
[2019-01-21] MEDS ORDERED: MAGNESIUM CITRATE 300 ML BOTTLE PO PRN (13:58)
[2019-01-21] MEDS ORDERED: MELATONIN 5 MG TABLETS PO PRN (13:58)
[2019-01-21] MEDS ORDERED: BISMUTH SUBSALICYLATE 262 MG/15 ML BTL PO PRN (13:58)
[2019-01-21] MEDS ORDERED: MAG HYDROX/AL HYDROX/SIMETH 30 ML UNIT-DOSE CUP PO PRN (13:58)
--- NOTE | 2019-01-21 15:13 | PN ---
ODETTE Progress Note Note: this 43 years old male with heroin,alcohol,cocaine dependence,schizoaffective disorder for inpatient detox with methadone and librium regimen i personally review.present,and concurred with history,physical examination, decision making and plan of treatment by Dr.Abbi Beltrán
[2019-01-21] MEDS ORDERED: METHADONE HCL 10 MG TABLET (FOR DETOX USE ONLY) PO ONE (15:20)
[2019-01-21] MEDS: chlordiazePOXIDE HCL 25 MG CAPSULE PO SCH ×2 (17:16→22:10)
[2019-01-21 18:08] LABS: HEMATOCRIT 38.1 % (35.4-49); HEMOGLOBIN 12.4 GM/dL (11.7-16.9); MCH 30.2 pg (25.7-33.7); MCHC 32.5 g/dl (32.0-35.9); MEAN CELL VOLUME 93.1 fl (80-96); PLATELET COUNT 264 K/MM3 (134-434); RBC 4.09 M/mm3 (4.00-5.60); RDW 13.9 % (11.9-15.9); WHITE BLOOD COUNT 3.4 K/mm3 (4.0-10.0)
[2019-01-21 18:19] LABS: ALBUMIN 3.9 g/dl (3.4-5.0); BILIRUBIN,TOTAL 0.3 mg/dL (0.2-1); BLOOD UREA NITROGEN 12.4 mg/dL (7-18); CALCIUM 8.9 mg/dL (8.5-10.1); POTASSIUM 4.5 mmol/L (3.5-5.1); TOT PROT 7.1 g/dl (6.4-8.2)
[2019-01-21] MEDS: THIAMINE HCL 100 MG TABLET (FP) PO SCH (22:10)
[2019-01-22] MEDS: chlordiazePOXIDE HCL 25 MG CAPSULE PO SCH ×4 (05:48→22:22)
[2019-01-22] MEDS ORDERED: METHADONE HCL 10 MG TABLET (FOR DETOX USE ONLY) ONE (08:59)
[2019-01-22] MEDS ORDERED: METHADONE HCL 5 MG TABLET (FOR DETOX USE ONLY) ONE (08:59)
[2019-01-22] MEDS ORDERED: METHADONE (DETOX) 20 MG, METHADONE (DETOX) 5 MG PO ONE (10:00)
[2019-01-22] MEDS: PRENATAL VITAMINS W/ FOLIC ACID TABLET (FP) PO SCH (10:51)
--- NOTE | 2019-01-22 13:06 | PN ---
[facility] CIWA - CIWA Score Nausea/Vomitin-Mild Nausea/No Vomiting Muscle Tremors: 1-None Visible, but [place] Anxiety: 1-Mildly Anxious Agitation: 1-Slight > Activity Paroxysmal Sweats: 1-Minimal Palms Moist Orientation: 0-Oriented Tacttile Disturbances: 0-None Auditory Disturbances: 0-None Visual Disturbances: 0-None Headache: 0-None Present CIWA-Ar Total Score: 5 [facility] COWS - Scale Resting Pulse: 1= [place] 81-100 Sweatin= Chills/Flushing Restless Observation: 1= Difficult to Sit Still Pupil Size: 0= Normal to Room Light Bone or Joint Aches: 1= Mild Discomfort Runny Nose/ Eye Tearin= Nasal Congestion GI Upset > 30mins: 0= None Tremor Observation of Outstretched Hands: 0= None Anxiety or Irritability: 0= None Goose Flesh Skin: 0=Smooth Skin [facility] Progress Note (SOAP) Subjective: here for heroin, and alcohol detox O: Vital Signs - 24 hr 01/21/19 01/21/19 01/21/19 13:09 15:12 17:10 Temperature 98 F 97.8 F 98.1 F Pulse Rate 63 56 L 58 L Respiratory 20 18 17 Rate Blood Pressure 102/64 120/77 96/59 L 01/21/19 01/22/19 01/22/19 21:16 00:30 03:30 Temperature 99.4 F Pulse Rate 63 Respiratory 18 18 18 Rate Blood Pressure 113/70 01/22/19 01/22/19 06:07 09:21 Temperature 97.5 F L 98.4 F Pulse Rate 51 L 62 Respiratory 18 18 Rate Blood Pressure 117/80 115/68 Laboratory Tests 01/21/19 01/21/19 01/21/19 14:25 14:25 14:25 WBC 3.4 L RBC 4.09 Hgb 12.4 Hct 38.1 MCV 93.1 MCH 30.2 MCHC 32.5 RDW 13.9 Plt Count 264 MPV 8.0 Sodium 144 Potassium 4.5 Chloride 106 Carbon Dioxide 36 H Anion Gap 2 L BUN 12.4 Creatinine 1.0 Est GFR (CKD-EPI)AfAm 107.12 Est GFR (CKD-EPI)NonAf 92.42 Random Glucose 71 L Calcium 8.9 Total Bilirubin 0.3 AST 37 ALT 33 Alkaline Phosphatase 99 Total Protein 7.1 Albumin 3.9 RPR Titer Nonreactive a/p: continue alcohol/heroin detox, pt doing well
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
[2019-01-22] MEDS ORDERED: GABAPENTIN 300 MG CAPSULE (FP) PO PRN (18:21)
[2019-01-22] MEDS ORDERED: GABAPENTIN 300 MG CAPSULE (FP) PO SCH (22:00)
[2019-01-22] MEDS ORDERED: MIRTAZAPINE 15 MG TABLET (FP) PO SCH (22:00)
[2019-01-22] MEDS: THIAMINE HCL 100 MG TABLET (FP) PO SCH (22:22)
[2019-01-22] MEDS: GABAPENTIN 300 MG CAPSULE (FP) PO SCH (22:23)
[2019-01-23] MEDS: chlordiazePOXIDE HCL 25 MG CAPSULE PO SCH ×2 (05:23→10:09)
[2019-01-23] MEDS ORDERED: lamoTRIgine 25 MG TABLET PO SCH (10:00)
[2019-01-23] MEDS ORDERED: METHADONE HCL 10 MG TABLET (FOR DETOX USE ONLY) PO ONE (10:00)
[2019-01-23] MEDS: GABAPENTIN 300 MG CAPSULE (FP) PO SCH (10:08)
[2019-01-23] MEDS: PRENATAL VITAMINS W/ FOLIC ACID TABLET (FP) PO SCH (10:08)
[2019-01-23 13:18] VITALS: BP 107/76; PULSE 67; TEMP 98.4
[2019-01-23] MEDS ORDERED: diazePAM 5 MG TABLET PO PRN (14:28)
--- NOTE | 2019-01-23 16:06 | PN ---
[facility] CIWA - CIWA Score Nausea/Vomitin-No Nausea/No Vomiting Muscle Tremors: 2 Anxiety: 4-Mod. Anxious/Guarded Agitation: 2 Paroxysmal Sweats: No Perspiration Orientation: 0-Oriented Tacttile Disturbances: 2-Mild Itch/Numbness/Burn Auditory Disturbances: 0-None Visual Disturbances: 0-None Headache: 0-None Present CIWA-Ar Total Score: 10 S COWS - Scale Resting Pulse: 0= [place] 80 or Below Sweatin= Chills/Flushing Restless Observation: 1= Difficult to Sit Still Pupil Size: 0= Normal to Room Light Bone or Joint Aches: 0= None Runny Nose/ Eye Tearin= None GI Upset > 30mins: 0= None Tremor Observation of Outstretched Hands: 2= Slight Tremor Visible Yawning Observation: 2= >3x During Session Anxiety or Irritability: 2=Irritable/Anxious Goose Flesh Skin: 3=Piloerection COWS Score: 11 S Progress Note (SOAP) Subjective: Fatigue, Anxious, Tremors, Poor Appetite. Objective: PATIENT A & O X 3, OBSERVED AMBULATING ON UNIT UNASSISTED. IN NO ACUTE DISTRESS. 01/23/19 16:08 Vital Signs Temperature 98.4 F 01/23/19 13:17 Pulse Rate 67 01/23/19 13:17 Respiratory Rate 18 01/23/19 13:17 Blood Pressure 107/76 01/23/19 13:17 O2 Sat by Pulse Oximetry (%) Laboratory Tests 01/21/19 01/21/19 01/21/19 14:25 14:25 14:25 WBC 3.4 L RBC 4.09 Hgb 12.4 Hct 38.1 MCV 93.1 MCH 30.2 MCHC 32.5 RDW 13.9 Plt Count 264 MPV 8.0 Sodium 144 Potassium 4.5 Chloride 106 Carbon Dioxide 36 H Anion Gap 2 L BUN 12.4 Creatinine 1.0 Est GFR (CKD-EPI)AfAm 107.12 Est GFR (CKD-EPI)NonAf 92.42 Random Glucose 71 L Calcium 8.9 Total Bilirubin 0.3 AST 37 ALT 33 Alkaline Phosphatase 99 Total Protein 7.1 Albumin 3.9 RPR Titer Nonreactive LABS NOTED. PATIENT HAS HAD LOW WBC LEVELS ON PREVIOUS ADMISSIONS. 01/23/19 16:12 Assessment: 01/23/19 16:09 WITHDRAWAL SYMPTOMNS. LEUKOPENIA. HYPOGLYCEMIA. Plan: CONTINUE DETOX. PO ENSURE FOR CALORIC SUPPLEMENTATION. PATIENT REPORTS THAT HE DOES NOT FEEL IF LIBRIUM DETOX PROTOCOL IS WORKING WELL FOR HIM. AT PATIENT'S REQUEST, LIBRIUM DETOX PROTOCOL CHANGED TO VALIUM DETOX PROTOCOL.
[2019-01-23] MEDS ORDERED: diazePAM 5 MG TABLET PO SCH (17:00)
[2019-01-24] MEDS ORDERED: chlordiazePOXIDE HCL 10 MG CAPSULE PO PRN
[2019-01-24] MEDS ORDERED: chlordiazePOXIDE HCL 10 MG CAPSULE PO SCH (05:00)
[2019-01-24] MEDS ORDERED: diazePAM 5 MG TABLET PO SCH (06:00)
[2019-01-24] MEDS ORDERED: METHADONE (DETOX) 10 MG, METHADONE (DETOX) 5 MG PO ONE (10:00)
[2019-01-25] MEDS ORDERED: chlordiazePOXIDE HCL 10 MG CAPSULE PO SCH (05:00)
[2019-01-25] MEDS ORDERED: METHADONE HCL 10 MG TABLET (FOR DETOX USE ONLY) PO ONE (10:00)
[2019-01-26] MEDS ORDERED: chlordiazePOXIDE HCL 10 MG CAPSULE PO ONE (05:00)
[2019-01-26] MEDS ORDERED: diazePAM 5 MG TABLET PO ONE (06:00)
[2019-01-26] MEDS ORDERED: METHADONE HCL 5 MG TABLET (FOR DETOX USE ONLY) PO ONE (06:00)
== END 2019-01-23 17:20 | disposition left against medical advice (07) | DRG 770 ==
LOC: YASAS 10:06 → Y3N 14:01
PROVIDERS: ADMIT Surgery; ATTEND Surgery
PROC: HZ2ZZZZ Detoxification Services for Substance Abuse Treatment (ICD-10-PCS; principal; 2019-01-21)
DX: F10.230 Alcohol dependence with withdrawal, uncomplicated (principal); F11.23 Opioid dependence with withdrawal; F14.20 Cocaine dependence, uncomplicated; F17.213 Nicotine dependence, cigarettes, with withdrawal; F19.24 Other psychoactive substance dependence with psychoactive substance-induced mood disorder; F25.9 Schizoaffective disorder, unspecified; F31.9 Bipolar disorder, unspecified; G47.00 Insomnia, unspecified; D72.829 Elevated white blood cell count, unspecified; E86.0 Dehydration; Z88.0 Allergy status to penicillin; Z91.013 Allergy to seafood; Z91.5 Personal history of self-harm; Z91.19 Patient's noncompliance with other medical treatment and regimen
CPT/HCPCS: 36415; 80053; 85027; 86593